=== PATIENT | male | born 1980 | race Caucasian/White ===

== ENCOUNTER 2024-06-18 14:38 | Emergency (ER) | payer MEDICARE ==
[~2024-06-18] VITALS: Ht 177.8 cm; Wt 72.6 kg
[2024-06-18 18:35] VITALS: BP 128/71; O2SAT 98
== END 2024-06-18 18:35 | disposition home or self-care (01) ==
LOC: ER 14:39
DX: R22.2 Localized swelling, mass and lump, trunk (principal)
CPT/HCPCS: 76642; A4606; A4663

== ENCOUNTER 2024-07-15 20:49 | Emergency (ER) | payer MEDICARE, OTHER ==
[~2024-07-15] VITALS: Ht 175.3 cm; Wt 74.8 kg
[2024-07-15] MEDS ORDERED: ONDANSETRON 4 MG/2 ML VIAL ONE (21:36)
[2024-07-15] MEDS ORDERED: MORPHINE SULFATE 2 MG/1 ML DISP.SYRIN ONE (21:37)
[2024-07-15] MEDS: ONDANSETRON 4 MG/2 ML VIAL IV ONE (21:41)
[2024-07-15 21:42] LABS: *BILIRUBIN,URIN NEGATIVE (NEGATIVE); *BLOOD, URINE 3+ (NEGATIVE); *CLARITY,URINE CLEAR (CLEAR); *COLOR,URINE YELLOW (YELLOW); *KETONES,URINE TRACE (NEGATIVE); *PROTEIN,URINE 1+ (NEGATIVE); *UROBILINOGEN,URINE 0.2 E.U./dl (NORMAL); BASOPHILS # (AUTO) 0.1 K/UL (0.0-0.2); BASOPHILS % (AUTO) 0.4 % (0.0-2.0); EOSINOPHILS # (AUTO) 0.1 K/uL (0.0-0.7); EOSINOPHILS % (AUTO) 0.7 % (0.0-7.0); HEMATOCRIT 41.9 % (36.7-47.1); HEMOGLOBIN 14.5 g/dL (12.5-16.3); LEUKOCYTE ESTERASE ,URINE NEGATIVE (NEGATIVE); LYMPHOCYTES # (AUTO) 3.7 K/uL (0.8-4.8); LYMPHOCYTES % (AUTO) 31.4 % (20.5-51.5); MEAN CORPUSCULAR HEMOGLOBIN 28.4 uug (23.8-33.4); MEAN CORPUSCULAR HGB CONC 35 g/dL (32.5-36.3); MEAN CORPUSCULAR VOLUME 81.8 fL (73.0-96.2); MONOCYTES # (AUTO) 0.5 K/uL (0.1-1.30); MONOCYTES % (AUTO) 4.4 % (0.0-11.0); NEUTROPHILS # (AUTO) 7.4 K/uL (1.8-8.9); NEUTROPHILS % (AUTO) 63.1 % (38.5-71.5); NITRITE, URINE NEGATIVE (NEGATIVE); PH,URINE 6.5 (5.0-8.0); PLATELET COUNT (AUTO) 206 K/uL (152-348); RED BLOOD CELL COUNT(AUTO) 5.12 MIL/uL (4.06-5.63); RED CELL DISTRIBUTION WIDTH 13.4 % (12.1-16.2); UGLUCOSE NEGATIVE (NEGATIVE); WHITE BLOOD COUNT (AUTO) 11.8 K/uL (3.6-10.2)
[2024-07-15] MEDS: MORPHINE SULFATE 2 MG/1 ML DISP.SYRIN IV ONE (21:42)
[2024-07-15 21:43] LABS: DIFFERENTIAL COMMENT 1
[2024-07-15 21:56] LABS: WBC,URINE 0-3 /HPF (0-3)
[2024-07-15 21:58] LABS: *AMPHETAMINE, URINE NEGATIVE (NEGATIVE); *BARBITURATE, URINE NEGATIVE (NEGATIVE); *BENZODIAZEPINE, URINE NEGATIVE (NEGATIVE); *CANNABINOID, URINE POSITIVE (NEGATIVE); *COCCAINE, URINE NEGATIVE (NEGATIVE); *OPIATE, URINE NEGATIVE (NEGATIVE); *PHENCYCLIDINE SCREEN,URINE NEGATIVE (NEGATIVE); FENTANYL, URINE NEGATIVE (NEGATIVE)
[2024-07-15 22:07] LABS: CREATININE 1.4 mg/dL (0.6-1.3); POTASSIUM 3.6 mmol/L (3.5-5.1)
[2024-07-15 22:13] LABS: ALBUMIN 4.1 g/dL (3.4-5.0); BILIRUBIN,TOTAL 0.5 mg/dL (0.2-1.0); TOTAL PROTEIN, SERUM 7.7 g/dL (6.4-8.2)
[2024-07-15] MEDS ORDERED: TAMS-3 PO (23:19)
[2024-07-15 23:27] VITALS: BP 139/75; TEMP 98; O2SAT 99
== END 2024-07-15 23:28 | disposition home or self-care (01) ==
LOC: ER 20:51
DX: N13.2 Hydronephrosis with renal and ureteral calculous obstruction (principal); F12.90 Cannabis use, unspecified, uncomplicated; F17.200 Nicotine dependence, unspecified, uncomplicated
CPT/HCPCS: 99285; 74176; 96374; 96375; 80053; 81001; 85025; 36415; 80307; J2405; J2270; A4606; A4663